=== PATIENT | male | born 1940 | race African-American/Black ===

== ENCOUNTER 2018-05-19 12:56 | Outpatient (CLI) | payer MEDICARE ==
[2018-05-19 13:32] LABS: Vancomycin, Trough 14.2 ug/mL
[2018-05-19 13:56] LABS: Follow-up Chemistry Comp? YES; Follow-up Result - Chemistry REPORT FAXED
== END 2018-05-19 12:57 | disposition home or self-care (01) ==
LOC: NAV LAB 12:56
DX: Z51.81 Encounter for therapeutic drug level monitoring (principal); Z79.2 Long term (current) use of antibiotics
CPT/HCPCS: 80202; 82565; 84520